=== PATIENT | female | born 2005 | race Caucasian/White ===

== ENCOUNTER 2024-06-23 15:58 | Outpatient (CLI) | payer OTHER, SELFPAY | END 2024-06-23 15:59 | disposition home or self-care (01) | PROVIDERS: Visit Provider Obstetrics & Gynecology | DX: F64.9 Gender identity disorder, unspecified (principal); R74.01 Elevation of levels of liver transaminase levels; Z13.29 Encounter for screening for other suspected endocrine disorder | CPT/HCPCS: 80053; 84270; 84402; 84403 ==

== ENCOUNTER 2024-07-04 09:30 | Outpatient (CLI) | payer OTHER, SELFPAY | END 2024-07-04 09:31 | disposition home or self-care (01) | LOC: NFLDREF 07-06 08:37 | PROVIDERS: Visit Provider Obstetrics & Gynecology | DX: R74.01 Elevation of levels of liver transaminase levels (principal) | CPT/HCPCS: 80076 ==